=== PATIENT | female | born 2000 | race Caucasian/White ===

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

== ENCOUNTER 2020-11-06 00:06 | Emergency (ER) | payer BC, OTHER ==
[~2020-11-06 00:06] MED LIST: BENTYL 10MG CAP10 MG PO; NORCO 5-325 TA1 EACH PO; ZOFRAN ODT 4 MG4 MG PO; ZOFRAN ODT 4 MG4 MG SL; ZOFRAN ODT4 MG PO; ZOFRAN4 MG PO
[2020-11-06] MEDS ORDERED: LODINE CAP 300300 MG PO (02:04)
[2020-11-06] MEDS ORDERED: NORFLEX 100 MG100 MG PO (02:04)
== END 2020-11-06 02:16 | disposition home or self-care (01) ==
LOC: ER1 00:06
DX: S43.401A Unspecified sprain of right shoulder joint, initial encounter (principal); V89.2XXA Person injured in unspecified motor-vehicle accident, traffic, initial encounter; Y92.410 Unspecified street and highway as the place of occurrence of the external cause
CPT/HCPCS: 71045; 73000; 73030; 99283

== ENCOUNTER → 2020-11-17 | Outpatient (CLI) | payer BC, OTHER ==
[~2020-11-17] MED LIST changes: +LODINE CAP 300300 MG PO; +NORFLEX 100 MG100 MG PO
== END ==
LOC: KOH-I 12:49
DX: M79.601 Pain in right arm (principal)
CPT/HCPCS: 73090

== ENCOUNTER 2021-05-22 06:35 | Observation (INO) | payer OTHER ==
[~2021-05-22] VITALS: Ht 167.6 cm; Wt 87.1 kg
[2021-05-22 08:22] LABS: HEMOGLOBIN 13.3 gm/dl (12.3-15.3); RED BLOOD COUNT 4.49 M/UL (4.00-5.10); WHITE BLOOD COUNT 14.5 K/UL (4.5-11.0)
[2021-05-22 08:41] LABS: BUN/CREATININE RATIO 17 (0-10)
[2021-05-22] MEDS ORDERED: HYDROCODON-ACE1 EAC4 PO (13:21)
== END 2021-05-22 14:00 | disposition home or self-care (01) ==
LOC: ER1 06:35 → CDU 09:13
PROVIDERS: Physician Assistant; ADMIT Surgery
DX: K35.80 Unspecified acute appendicitis (principal); F41.9 Anxiety disorder, unspecified; F32.9 Major depressive disorder, single episode, unspecified; Z20.822 Contact with and (suspected) exposure to COVID-19
CPT/HCPCS: 80053; 81001; 82150; 83690; 84703; 85025; 96372; 99285; G0378; J0295; J0500; J1100; J2001; J2250; J2405; J2543; J2704; J2710; J2765; J3010; J3480; J7120; Q9967; U0002